=== PATIENT | male | born 1985 | race Caucasian/White ===

== ENCOUNTER 2016-11-06 18:35 | Emergency (ER) | payer OTHER ==
[~2016-11-06] VITALS: Ht 182.9 cm; Wt 97.1 kg
[~2016-11-06 18:35] MED LIST: FLEXERIL10 MG PO; MOTRIN600 MG PO
[2016-11-06] MEDS ORDERED: MOTRIN800 MG PO (21:21)
[2016-11-06] MEDS ORDERED: LIDODERM 5% P1 PATCH TD (21:21)
[2016-11-06] MEDS ORDERED: NORCO 7.5/321 TABLET PO (21:21)
[2016-11-06] MEDS ORDERED: VALIUM5 MG PO (21:21)
[2016-11-06 22:19] VITALS: BP 114/88
== END 2016-11-06 22:20 | disposition home or self-care (01) ==
LOC: EME 18:35
DX: M54.42 Lumbago with sciatica, left side (principal)
CPT/HCPCS: 99281; 99284; J1885; J3010

== ENCOUNTER 2017-05-03 15:16 | Emergency (ER) | payer OTHER ==
[~2017-05-03] VITALS: Ht 182.9 cm; Wt 93.6 kg
[~2017-05-03 15:16] MED LIST changes: +LIDODERM 5% P1 PATCH TD; +MOTRIN800 MG PO; +NORCO 7.5/321 TABLET PO; +VALIUM5 MG PO
[2017-05-03] MEDS ORDERED: INDOCIN50 MG PO (17:25)
[2017-05-03 17:36] VITALS: BP 110/81
== END 2017-05-03 17:37 | disposition home or self-care (01) ==
LOC: EME 15:16
DX: S63.502A Unspecified sprain of left wrist, initial encounter (principal); X50.9XXA Other and unspecified overexertion or strenuous movements or postures, initial encounter; Y99.0 Civilian activity done for income or pay
CPT/HCPCS: 73090; 99281; 99283